=== PATIENT | male | born 1990 | race Caucasian/White ===

== ENCOUNTER 2019-02-22 09:43 | Emergency (ER) | payer OTHER ==
[~2019-02-22] VITALS: Ht 175.3 cm; Wt 81.6 kg
[~2019-02-22 09:43] MED LIST: STRATTERA80 MG
== END 2019-02-22 13:11 | disposition home or self-care (01) ==
LOC: ER 09:43
DX: K52.9 Noninfective gastroenteritis and colitis, unspecified (principal)

== ENCOUNTER 2023-07-12 11:13 | Emergency (ER) | payer OTHER ==
[~2023-07-12] VITALS: Ht 175.3 cm; Wt 78.0 kg
[2023-07-12] MEDS ORDERED: CENTANY30 GM NASAL (12:03)
[2023-07-12] MEDS ORDERED: BACTRIM DS TAB1 EACH PO (12:03)
== END 2023-07-12 12:38 | disposition home or self-care (01) ==
LOC: ER 11:13
DX: L73.8 Other specified follicular disorders (principal)

== ENCOUNTER 2023-08-02 08:53 | Emergency (ER) | payer OTHER ==
[~2023-08-02] VITALS: Ht 175.3 cm; Wt 77.1 kg
[~2023-08-02 08:53] MED LIST changes: +BACTRIM DS TAB1 EACH PO; +CENTANY30 GM NASAL
[2023-08-02 09:36] LABS: PH,URINE 5.5 (5.0-8.0); URINE APPEARANCE Clear; URINE BILIRRUBIN Negative (NEGATIVE); URINE BLOOD Negative; URINE COLOR Dark Yellow; URINE GLUCOSE Negative (NEGATIVE); URINE LEUKOCYTE Trace; URINE NITRATE Negative; URINE PROTEIN Negative (NEGATIVE); URINE UROBILINOGEN 0.2 E.U./dl
[2023-08-02 09:37] LABS: URINE EPITHELIAL CELLS 1.5 uL (0.0-38.8); URINE WBC 4.4 uL (0.0-23.2)
[2023-08-02 09:49] LABS: URINE RBC 0.8 uL (0.0-20.8)
[2023-08-02 09:51] LABS: HEMATOCRIT 48.2 % (39.0-48.0); HEMOGLOBIN 16.8 g/dL (13-16.00); MEAN CELL VOLUME 91.2 fL (80.0-100.00); MEAN CORPUSCULAR HEMOGLOBIN 31.8 pg (27.00-32.0); MEAN CORPUSCULAR HGB CONC 34.9 g/dl (32.0-36.0); PLATELET COUNT 254 K/uL (150-450); RED BLOOD COUNT 5.28 M/uL (4.00-6.00); RED CELL DISTRIBUTION WIDTH 13.1 % (11.5-14.5)
[2023-08-02 10:06] LABS: CALCIUM 10.1 mg/dL (8.5-10.1); CREATININE SERUM 1.28 mg/dL (0.70-1.30); GFR 65.13; POTASSIUM 3.89 mEq/L (3.5-5.1)
== END 2023-08-02 15:48 | disposition home or self-care (01) ==
LOC: ER 08:54
PROVIDERS: Emergency Medicine
DX: K52.89 Other specified noninfective gastroenteritis and colitis (principal)